=== PATIENT | female | born 1975 | race American Indian/Alaskan Native ===

== ENCOUNTER 2017-08-16 11:54 | Observation (INO) | payer MEDICARE ==
[2017-08-16 12:53] LABS: Basophils % (Auto) 0.9 % (0.0-1.8); Eosinophils # (Auto) 0.2 K/mm3 (0.0-0.4); Eosinophils % (Auto) 5.5 % (0.0-4.3); Hematocrit 33.1 % (30.3-42.9); Hemoglobin 10.7 gm/dl (10.1-14.3); Lymphocytes # (Auto) 1.2 K/mm3 (1.2-5.4); Lymphocytes % (Auto) 28.1 % (13.4-35.0); Mean Corpuscular HGB Conc 32 % (30-34); Mean Corpuscular Hemoglobin 28 pg (28-32); Mean Corpuscular Volume 87 fl (79-97); Monocytes # (Auto) 0.6 K/mm3 (0.0-0.8); Monocytes % (Auto) 13.8 % (0.0-7.3); Platelet Count 264 K/mm3 (140-440); Red Blood Count 3.83 M/mm3 (3.65-5.03); Red Cell Distribution Width 14.9 % (13.2-15.2)
[2017-08-16 12:55] LABS: INR 0.92 (0.87-1.13)
[2017-08-16 12:59] LABS: Alanine Aminotransferase 21 units/L (7-56); Albumin 3.7 g/dL (3.9-5); BUN/Creatinine Ratio 11; Blood Urea Nitrogen 8 mg/dL (7-17); Calcium 8.6 mg/dL (8.4-10.2); Hemolysis Index 2
[2017-08-16] MEDS ORDERED: SUBLIMAZE IV ONE (13:37)
--- NOTE | 2017-08-16 13:38 | Emergency Department Report ---
ED Chest Pain HPI - General Chief Complaint: Chest Pain Stated Complaint: CHEST PAIN Time Seen by Provider: 08/16/17 12:54 Source: patient, EMS (ems notes not available at time of chart dictation), RN notes reviewed Mode of arrival: Stretcher Limitations: No Limitations - History of Present Illness Initial Comments: This is a 42-year-old female. The patient is unknown to this provider previously. She has a history of seizures. She denies DVT, pulmonary embolus risk factors. She presents to the ER with complaint of central and left-sided chest pain. It started last night at 11:00. It is intermittent. There is no vomiting or diaphoresis. There is no leg pain, there is no leg swelling, no recent aspirin use or cocaine use. Patient further reports that both of her parents had cardiac disease in their 40s. No history of cardiac risk stratification the patient is aware of. Furthermore, the patient denies cocaine use. MD Complaint: chest pain -: Gradual Onset: during rest Pain Location: substernal, left chest Pain Radiation: RUE Severity: moderate Severity scale (0 -10): 10 Quality: aching, heaviness, sharp Consistency: intermittent Improves With: nothing Worsens With: nothing re: denies: nausea, vomting, diaphoresis, dyspnea, sense of impending doom Treatments Prior to Arrival: aspirin Aspirin use within the Past 7 Days: (0) No - Related Data Home Medications Medication Instructions Recorded Confirmed Last Taken Gabapentin [Neurontin] 300 mg PO TID 08/16/17 08/16/17 Unknown Loratadine [Claritin] 10 mg PO DAILY 08/16/17 08/16/17 Unknown Tizanidine HCl [tiZANidine] 4 mg PO TID PRN 08/16/17 08/16/17 Unknown levETIRAcetam [Keppra TAB] 750 mg PO BIDWM 08/16/17 08/16/17 Unknown Allergies Allergy/AdvReac Type Severity Reaction Status Date / Time No Known Allergies Allergy Unverified 01/06/16 03:35 Heart Score - HEART Score History: Moderately suspicious EKG: Non-specific Age: < 45 Risk factors: 1-2 risk factors Troponin: < normal limit HEART Score: 3 - Critical Actions Critical Actions: 0-3 pts:0.9-1.7%risk of adverse cardiac event.Candidate for discharge ED Review of Systems ROS: Stated complaint: CHEST PAIN Other details as noted in HPI Comment: All other systems reviewed and negative Constitutional: denies: fever Eyes: denies: eye discharge ENT: denies: epistaxis Respiratory: denies: cough Cardiovascular: chest pain Gastrointestinal: denies: abdominal pain Genitourinary: as per HPI Musculoskeletal: as per HPI ED Past Medical Hx - Past Medical History Hx Seizures: Yes Additional medical history: chronic back pain - Social History Smoking Status: Never Smoker Substance Use Type: Alcohol - Medications Home Medications: Home Medications Medication Instructions Recorded Confirmed Last Taken Type Gabapentin [Neurontin] 300 mg PO TID 08/16/17 08/16/17 Unknown History Loratadine [Claritin] 10 mg PO DAILY 08/16/17 08/16/17 Unknown History Tizanidine HCl [tiZANidine] 4 mg PO TID PRN 08/16/17 08/16/17 Unknown History levETIRAcetam [Keppra TAB] 750 mg PO BIDWM 08/16/17 08/16/17 Unknown History ED Physical Exam - General Limitations: No Limitations General appearance: alert, in no apparent distress - Head Head exam: Present: atraumatic, normocephalic - Eye Eye exam: Present: normal appearance, EOMI. Absent: nystagmus - ENT ENT exam: Present: normal exam, normal orophraynx, mucous membranes moist, normal external ear exam - Neck Neck exam: Present: normal inspection, full ROM - Respiratory Respiratory exam: Present: normal lung sounds bilaterally, chest wall tenderness. Absent: respiratory distress - Cardiovascular Cardiovascular Exam: Present: regular rate, normal rhythm, normal heart sounds. Absent: bradycardia, tachycardia, irregular rhythm, systolic murmur, diastolic murmur, rubs, gallop - GI/Abdominal GI/Abdominal exam: Present: soft, normal bowel sounds. Absent: distended, tenderness, guarding, rebound, rigid, pulsatile mass - Extremities Exam Extremities exam: Present: normal inspection, full ROM, normal capillary refill , other (there is no palpable cord. There is a negative Homans sign.). Absent : tenderness, pedal edema, joint swelling, calf tenderness - Back Exam Back exam: Present: normal inspection, full ROM. Absent: tenderness, CVA tenderness (R), paraspinal tenderness, vertebral tenderness - Neurological Exam Neurological exam: Present: alert, oriented X3, CN II-XII intact, normal gait, other (Extraocular movements intact. Tongue midline. No facial droop. Facial sensation intact to light touch in the V1, V2, V3 distribution bilaterally. 5 and 5 strength in 4 extremities.. Sensation is intact to light touch in 4 extremities.). Absent: motor sensory deficit - Psychiatric Psychiatric exam: Present: normal affect, normal mood - Skin Skin exam: Present: warm, dry, intact, normal color. Absent: rash ED Course Vital Signs 08/16/17 08/16/17 08/16/17 12:06 12:16 12:21 Temperature 98.4 F Pulse Rate 73 75 Respiratory 19 18 20 Rate Blood Pressure 104/63 140/63 Blood Pressure 104/63 [Left] O2 Sat by Pulse 98 99 Oximetry 08/16/17 08/16/17 08/16/17 12:30 12:46 13:00 Temperature Pulse Rate 60 71 63 Respiratory 13 12 13 Rate Blood Pressure 109/70 109/70 104/62 Blood Pressure [Left] O2 Sat by Pulse 98 99 Oximetry 08/16/17 08/16/17 08/16/17 13:16 13:30 13:46 Temperature Pulse Rate 72 68 60 Respiratory 16 18 15 Rate Blood Pressure 104/62 116/66 116/66 Blood Pressure [Left] O2 Sat by Pulse 98 98 98 Oximetry 08/16/17 08/16/17 08/16/17 14:00 14:10 14:42 Temperature Pulse Rate 65 58 L Respiratory 10 L 18 13 Rate Blood Pressure 102/69 113/68 Blood Pressure [Left] O2 Sat by Pulse 98 99 99 Oximetry 08/16/17 08/16/17 08/16/17 14:46 15:00 15:16 Temperature Pulse Rate 58 L 56 L 64 Respiratory 16 15 11 L Rate Blood Pressure 113/68 111/65 111/65 Blood Pressure [Left] O2 Sat by Pulse 99 99 100 Oximetry 08/16/17 08/16/17 15:30 15:38 Temperature Pulse Rate 62 58 L Respiratory 15 Rate Blood Pressure 113/67 Blood Pressure [Left] O2 Sat by Pulse 99 Oximetry - Reevaluation(s) Reevaluation #1: 08/16/17 16:04 CAT scan of the chest is negative for acute disease. Hospital physician is ronan. Reevaluation #2: 08/16/17 16:11 Dr Guallpa accepts patient MERA score - Mera Score Age > 65: (0) No Aspirin use within the Past 7 Days: (0) No 3 or more CAD Risk Factors: (0) No 2 or more Angina events in past 24 hrs: (1) Yes Known CAD with more than 50% Stenosis: (0) No Elevated Cardiac Markers: (0) No ST Deviation Greater than 0.5mm: (0) No MERA Score: 1 ED Medical Decision Making - Lab Data Result diagrams: 08/16/17 12:32 08/16/17 12:35 Vital Signs 08/16/17 08/16/17 08/16/17 12:06 12:16 12:21 Temperature 98.4 F Pulse Rate 73 75 Respiratory 19 18 20 Rate Blood Pressure 104/63 140/63 Blood Pressure 104/63 [Left] O2 Sat by Pulse 98 99 Oximetry 08/16/17 08/16/17 08/16/17 12:30 12:46 13:00 Temperature Pulse Rate 60 71 63 Respiratory 13 12 13 Rate Blood Pressure 109/70 109/70 104/62 Blood Pressure [Left] O2 Sat by Pulse 98 99 Oximetry 08/16/17 08/16/17 08/16/17 13:16 13:30 13:46 Temperature Pulse Rate 72 68 60 Respiratory 16 18 15 Rate Blood Pressure 104/62 116/66 116/66 Blood Pressure [Left] O2 Sat by Pulse 98 98 98 Oximetry 08/16/17 08/16/17 08/16/17 14:00 14:10 14:42 Temperature Pulse Rate 65 58 L Respiratory 10 L 18 13 Rate Blood Pressure 102/69 113/68 Blood Pressure [Left] O2 Sat by Pulse 98 99 99 Oximetry 08/16/17 08/16/17 08/16/17 14:46 15:00 15:16 Temperature Pulse Rate 58 L 56 L 64 Respiratory 16 15 11 L Rate Blood Pressure 113/68 111/65 111/65 Blood Pressure [Left] O2 Sat by Pulse 99 99 100 Oximetry 08/16/17 08/16/17 15:30 15:38 Temperature Pulse Rate 62 58 L Respiratory 15 Rate Blood Pressure 113/67 Blood Pressure [Left] O2 Sat by Pulse 99 Oximetry Lab Results 08/16/17 08/16/17 08/16/17 Range/Units 12:32 12:35 12:35 WBC 4.2 L (4.5-11.0) K/mm3 RBC 3.83 (3.65-5.03) M/mm3 Hgb 10.7 (10.1-14.3) gm/dl Hct 33.1 (30.3-42.9) % MCV 87 (79-97) fl MCH 28 (28-32) pg MCHC 32 (30-34) % RDW 14.9 (13.2-15.2) % Plt Count 264 (140-440) K/mm3 Lymph % (Auto) 28.1 (13.4-35.0) % [place] % (Auto) 13.8 H (0.0-7.3) % Eos % (Auto) 5.5 H (0.0-4.3) % Baso % (Auto) 0.9 (0.0-1.8) % Lymph # 1.2 (1.2-5.4) K/mm3 [place] # 0.6 (0.0-0.8) K/mm3 Eos # 0.2 (0.0-0.4) K/mm3 Baso # 0.0 (0.0-0.1) K/mm3 Seg Neutrophils % 51.7 (40.0-70.0) % Seg Neutrophils # 2.2 (1.8-7.7) K/mm3 PT 12.8 (12.2-14.9) Sec. INR 0.92 (0.87-1.13) D-Dimer (0-234) ng/mlDDU Sodium 145 (137-145) mmol/L Potassium 4.0 (3.6-5.0) mmol/L Chloride 113.4 H (98-107) mmol/L Carbon Dioxide 19 L (22-30) mmol/L Anion Gap 17 mmol/L BUN 8 (7-17) mg/dL Creatinine 0.7 (0.7-1.2) mg/dL Estimated GFR > 60 ml/min BUN/Creatinine Ratio 11 % Glucose 90 (65-100) mg/dL Calcium 8.6 (8.4-10.2) mg/dL Total Bilirubin 0.20 (0.1-1.2) mg/dL AST 26 (5-40) units/L ALT 21 (7-56) units/L Alkaline Phosphatase 96 (35-129) units/L Troponin T (0.00-0.029) ng/mL Total Protein 7.2 (6.3-8.2) g/dL Albumin 3.7 L (3.9-5) g/dL Albumin/Globulin Ratio 1.1 % Urine Color (Yellow) Urine Turbidity (Clear) Urine pH (5.0-7.0) Ur Specific [place] (1.003-1.030) Urine Protein (Negative) mg/dL Urine Glucose (UA) (Negative) mg/dL Urine Ketones (Negative) mg/dL Urine Blood (Negative) Urine Nitrite (Negative) Urine Bilirubin (Negative) Urine Urobilinogen (<2.0) mg/dL Ur Leukocyte Esterase (Negative) Urine WBC (Auto) (0.0-6.0) /HPF Urine RBC (Auto) (0.0-6.0) /HPF U Epithel Cells (Auto) (0-13.0) /HPF Urine Mucus /HPF Urine HCG, Qual (Negative) 08/16/17 08/16/17 08/16/17 Range/Units 12:35 12:35 14:16 WBC (4.5-11.0) K/mm3 RBC (3.65-5.03) M/mm3 Hgb (10.1-14.3) gm/dl Hct (30.3-42.9) % MCV (79-97) fl MCH (28-32) pg MCHC (30-34) % RDW (13.2-15.2) % Plt Count (140-440) K/mm3 Lymph % (Auto) (13.4-35.0) % [place] % (Auto) (0.0-7.3) % Eos % (Auto) (0.0-4.3) % Baso % (Auto) (0.0-1.8) % Lymph # (1.2-5.4) K/mm3 [place] # (0.0-0.8) K/mm3 Eos # (0.0-0.4) K/mm3 Baso # (0.0-0.1) K/mm3 Seg Neutrophils % (40.0-70.0) % Seg Neutrophils # (1.8-7.7) K/mm3 PT (12.2-14.9) Sec. INR (0.87-1.13) D-Dimer 335.11 H (0-234) ng/mlDDU Sodium (137-145) mmol/L Potassium (3.6-5.0) mmol/L Chloride (98-107) mmol/L Carbon Dioxide (22-30) mmol/L Anion Gap mmol/L BUN (7-17) mg/dL Creatinine (0.7-1.2) mg/dL Estimated GFR ml/min BUN/Creatinine Ratio % Glucose (65-100) mg/dL Calcium (8.4-10.2) mg/dL Total Bilirubin (0.1-1.2) mg/dL AST (5-40) units/L ALT (7-56) units/L Alkaline Phosphatase (35-129) units/L Troponin T < 0.010 < 0.010 (0.00-0.029) ng/mL Total Protein (6.3-8.2) g/dL Albumin (3.9-5) g/dL Albumin/Globulin Ratio % Urine Color (Yellow) Urine Turbidity (Clear) Urine pH (5.0-7.0) Ur Specific [place] (1.003-1.030) Urine Protein (Negative) mg/dL Urine Glucose (UA) (Negative) mg/dL Urine Ketones (Negative) mg/dL Urine Blood (Negative) Urine Nitrite (Negative) Urine Bilirubin (Negative) Urine Urobilinogen (<2.0) mg/dL Ur Leukocyte Esterase (Negative) Urine WBC (Auto) (0.0-6.0) /HPF Urine RBC (Auto) (0.0-6.0) /HPF U Epithel Cells (Auto) (0-13.0) /HPF Urine Mucus /HPF Urine HCG, Qual (Negative) 08/16/17 Range/Units 14:45 WBC (4.5-11.0) K/mm3 RBC (3.65-5.03) M/mm3 Hgb (10.1-14.3) gm/dl Hct (30.3-42.9) % MCV (79-97) fl MCH (28-32) pg MCHC (30-34) % RDW (13.2-15.2) % Plt Count (140-440) K/mm3 Lymph % (Auto) (13.4-35.0) % [place] % (Auto) (0.0-7.3) % Eos % (Auto) (0.0-4.3) % Baso % (Auto) (0.0-1.8) % Lymph # (1.2-5.4) K/mm3 [place] # (0.0-0.8) K/mm3 Eos # (0.0-0.4) K/mm3 Baso # (0.0-0.1) K/mm3 Seg Neutrophils % (40.0-70.0) % Seg Neutrophils # (1.8-7.7) K/mm3 PT (12.2-14.9) Sec. INR (0.87-1.13) D-Dimer (0-234) ng/mlDDU Sodium (137-145) mmol/L Potassium (3.6-5.0) mmol/L Chloride (98-107) mmol/L Carbon Dioxide (22-30) mmol/L Anion Gap mmol/L BUN (7-17) mg/dL Creatinine (0.7-1.2) mg/dL Estimated GFR ml/min BUN/Creatinine Ratio % Glucose (65-100) mg/dL Calcium (8.4-10.2) mg/dL Total Bilirubin (0.1-1.2) mg/dL AST (5-40) units/L ALT (7-56) units/L Alkaline Phosphatase (35-129) units/L Troponin T (0.00-0.029) ng/mL Total Protein (6.3-8.2) g/dL Albumin (3.9-5) g/dL Albumin/Globulin Ratio % Urine Color Yellow (Yellow) Urine Turbidity Clear (Clear) Urine pH 5.0 (5.0-7.0) Ur Specific [place] 1.024 (1.003-1.030) Urine Protein <15 mg/dl (Negative) mg/dL Urine Glucose (UA) Neg (Negative) mg/dL Urine Ketones Neg (Negative) mg/dL Urine Blood Neg (Negative) Urine Nitrite Neg (Negative) Urine Bilirubin Neg (Negative) Urine Urobilinogen < 2.0 (<2.0) mg/dL Ur Leukocyte Esterase Neg (Negative) Urine WBC (Auto) 1.0 (0.0-6.0) /HPF Urine RBC (Auto) 2.0 (0.0-6.0) /HPF U Epithel Cells (Auto) 3.0 (0-13.0) /HPF Urine Mucus Few /HPF Urine HCG, Qual Negative (Negative) - EKG Data -: EKG Interpreted by Me EKG shows normal: sinus rhythm Rate: normal - EKG Data 08/16/17 15:52 EKG #1 demonstrates sinus, 69 bpm, normal axis, T-wave inversion V2, low voltage in the inferior leads, abnormal EKG, not a STEMI, TX intervals prolonged. EKG #2 Show sinus, left axis deviation, resolution of T-wave inversion in V2, prolonged TX interval, abnormal EKG, nonspecific changes when compared to prior. - Radiology Data Radiology results: pending - Medical Decision Making Differential diagnosis, including but not limited to: Acute coronary syndrome, pulmonary embolus, aortic dissection, pneumonia, GERD, gastritis, hiatal hernia Assessment and plan: 42-year-old female with reproducible pleuritic pain, no pulmonary M blister DVT risk factors, with a positive d-dimer. EKG showing dynamic changes. Troponin negative 2. CT scan of the chest interpretation is pending. [place] improved after fentanyl and nitroglycerin. Given chest pain with dynamic EKG changes family history of heart disease in their 40s, patient to be admitted to the hospital for a cardiac resuscitation. The Hospital physician was paged to arrange admission. Patient was given aspirin in the ambulance. Critical care attestation.: If time is entered above; I have spent that time in minutes in the direct care of this critically ill patient, excluding procedure time. ED Disposition Clinical Impression: Chest pain, Acute electrocardiogram changes Disposition: OP ADMIT IP TO THIS HOSP Is pt being admited?: Yes Does the pt Need Aspirin: Yes Condition: Stable Instructions: Chest Pain (ED)
[2017-08-16] MEDS ORDERED: NACL 0.9% 500 ML 500 ML IV ONE (14:33)
[2017-08-16 15:35] LABS: Bilirubin,Urine NEG (Negative); Blood,Urine NEG (Negative); Color,Urine Yellow (Yellow); Mucus,Urine FEW /HPF; Protein,Urine <15 mg/dL mg/dL (Negative); Urobilinogen,Urine < 2.0 mg/dL (<2.0)
[2017-08-16 15:37] LABS: HCG Qualitative,Urine Negative (Negative)
[2017-08-16] MEDS ORDERED: BABY ASPIRIN PO ONE (15:55)
--- NOTE | 2017-08-16 16:03 | Cat Scan Report ---
CTA CHEST: HISTORY: Pleuritic chest pain. COMPARISON: none. TECHNIQUE: Helical CT in 1.25mm intervals following IV contrast. Pulmonary embolus protocol. Sagittal and coronal reformatted images. Rotational MIP images. FINDINGS: Contrast bolus is satisfactory. No pulmonary embolus is identified. Thyroid gland: Normal. Tracheobronchial tree: Normal. Esophagus: Normal. Heart: Normal. Pericardium: Normal. Mediastinum: Normal. Lung Leigh: normal. Pleural Spaces: Normal. Musculoskeletal: Normal. IMPRESSION: No evidence for pulmonary embolus. Unremarkable CT chest with contrast.
[2017-08-16] MEDS: NITROSTAT SL PRN ×2 (21:26→22:50)
[2017-08-16] MEDS ORDERED: SODIUM CHLORIDE FLUSH SYRINGE 10 ML IV PRN (22:54)
[2017-08-16] MEDS ORDERED: REGLAN IV PRN (22:54)
[2017-08-16] MEDS ORDERED: TYLENOL PO PRN (22:54)
[2017-08-16] MEDS ORDERED: MORPHINE IV PRN (22:54)
[2017-08-16] MEDS ORDERED: PERCOCET 5/325 PO PRN (22:54)
[2017-08-16] MEDS ORDERED: AMBIEN PO PRN (22:54)
[2017-08-16] MEDS ORDERED: ZOFRAN IV PRN (22:54)
--- NOTE | 2017-08-16 22:54 | History and Physical Report ---
History of Present Illness Date of examination: 08/16/17 Date of admission: 08/16/17 Chief complaint: Chief complaint: Left-sided chest pain for 1 day History of present illness: History of Present Illness: 42-year-old female with history of seizures presents to the ER with complaint of central and left-sided chest pain. It started last night at 11:00. It is intermittent. There is no vomiting or diaphoresis. There is no leg pain, there is no leg swelling, no recent aspirin use or cocaine use. Patient further reports that both of her parents had cardiac disease in their 40s. No history of cardiac risk stratification the patient is aware of. Furthermore, the patient denies cocaine use. MD Complaint: chest pain -: Gradual Onset: during rest Pain Location: substernal , left chest Pain Radiation: RUE Severity: moderate Severity scale (0 -10): 10 Quality: aching, heaviness, sharp Consistency: intermittent Improves With: nothing Worsens With: nothing denies: nausea, vomting, diaphoresis, dyspnea, Treatments Prior to Arrival: aspirin Aspirin use within the Past 7 Days: (0) No Past Medical History Hx Seizures: Yes Additional medical history: chronic back pain Social History Smoking Status: Never Smoker Substance Use Type: Alcohol Family history Htn Surgical History None Medications Home Medications: Home Medications Medication Instructions Recorded Confirmed Last Taken Type Gabapentin [Neurontin] 300 mg PO TID 08/16/17 08/16/17 Unknown History Loratadine [Claritin] 10 mg PO DAILY 08/16/17 08/16/17 Unknown History Tizanidine HCl [tiZANidine] 4 mg PO TID PRN 08/16/17 08/16/17 Unknown History levETIRAcetam [Keppra TAB] 750 mg PO BIDWM 08/16/17 08/16/17 Unknown History Review of Systems ROS: Stated complaint: CHEST PAIN Other details as noted in HPI Comment: All other systems reviewed and negative Constitutional: denies: fever Eyes: denies: eye discharge ENT: denies: epistaxis Respiratory: denies: cough Cardiovascular: chest pain Gastrointestinal: denies: abdominal pain Genitourinary: as per HPI Musculoskeletal: as per HPI Medications and Allergies Allergies Allergy/AdvReac Type Severity Reaction Status Date / Time No Known Allergies Allergy Unverified 01/06/16 03:35 Home Medications Medication Instructions Recorded Confirmed Last Taken Type Gabapentin [Neurontin] 300 mg PO TID 08/16/17 08/16/17 Unknown History Loratadine [Claritin] 10 mg PO DAILY 08/16/17 08/16/17 Unknown History Tizanidine HCl [tiZANidine] 4 mg PO TID PRN 08/16/17 08/16/17 Unknown History levETIRAcetam [Keppra TAB] 750 mg PO BIDWM 08/16/17 08/16/17 Unknown History Active Meds: Active Medications Nitroglycerin (Nitrostat) 0.4 mg SL .Q5MIN PRN PRN Reason: Chest Pain Last Admin: 08/16/17 22:50 Dose: 0.4 mg Exam - Constitutional Vitals: Temp Pulse Resp BP Pulse Ox 98.9 F 83 17 120/71 100 08/16/17 19:10 08/16/17 22:50 08/16/17 22:30 08/16/17 22:50 08/16/17 22:16 General appearance: Present: no acute distress, well-nourished - EENT Eyes: Present: PERRL ENT: hearing intact, clear oral mucosa - Neck Neck: Present: supple, normal ROM - Respiratory Respiratory effort: normal Respiratory: bilateral: CTA - Cardiovascular Heart rate: 76 Rhythm: regular Heart Sounds: Present: S1 & S2. Absent: rub, click - Extremities Extremities: no ischemia, pulses intact, pulses symmetrical, No edema Peripheral Pulses: within normal limits - Abdominal General gastrointestinal: Present: soft, non-tender, non-distended, normal bowel sounds Female genitourinary: Present: normal - Integumentary Integumentary: Present: clear, warm, dry - Musculoskeletal Musculoskeletal: gait normal, strength equal bilaterally - Psychiatric Psychiatric: appropriate mood/affect, intact judgment & insight - Neurologic Neurologic: CNII-XII intact, moves all extremities - Allied Health Allied health notes reviewed: nursing, case management Results - Labs CBC & Chem 7: 08/16/17 12:32 08/16/17 12:35 Labs: Laboratory Last Values WBC 4.2 K/mm3 (4.5-11.0) L 08/16/17 12:32 RBC 3.83 M/mm3 (3.65-5.03) 08/16/17 12:32 Hgb 10.7 gm/dl (10.1-14.3) 08/16/17 12:32 Hct 33.1 % (30.3-42.9) 08/16/17 12:32 MCV 87 fl (79-97) 08/16/17 12:32 MCH 28 pg (28-32) 08/16/17 12:32 MCHC 32 % (30-34) 08/16/17 12:32 RDW 14.9 % (13.2-15.2) 08/16/17 12:32 Plt Count 264 K/mm3 (140-440) 08/16/17 12:32 Lymph % (Auto) 28.1 % (13.4-35.0) 08/16/17 12:32 [place] % (Auto) 13.8 % (0.0-7.3) H 08/16/17 12:32 Eos % (Auto) 5.5 % (0.0-4.3) H 08/16/17 12:32 Baso % (Auto) 0.9 % (0.0-1.8) 08/16/17 12:32 Lymph # 1.2 K/mm3 (1.2-5.4) 08/16/17 12:32 [place] # 0.6 K/mm3 (0.0-0.8) 08/16/17 12:32 Eos # 0.2 K/mm3 (0.0-0.4) 08/16/17 12:32 Baso # 0.0 K/mm3 (0.0-0.1) 08/16/17 12:32 Seg Neutrophils % 51.7 % (40.0-70.0) 08/16/17 12:32 Seg Neutrophils # 2.2 K/mm3 (1.8-7.7) 08/16/17 12:32 PT 12.8 Sec. (12.2-14.9) 08/16/17 12:35 INR 0.92 (0.87-1.13) 08/16/17 12:35 D-Dimer 335.11 ng/mlDDU (0-234) H 08/16/17 12:35 Sodium 145 mmol/L (137-145) 08/16/17 12:35 Potassium 4.0 mmol/L (3.6-5.0) 08/16/17 12:35 Chloride 113.4 mmol/L (98-107) H 08/16/17 12:35 Carbon Dioxide 19 mmol/L (22-30) L 08/16/17 12:35 Anion Gap 17 mmol/L 08/16/17 12:35 BUN 8 mg/dL (7-17) 08/16/17 12:35 Creatinine 0.7 mg/dL (0.7-1.2) 08/16/17 12:35 Estimated GFR > 60 ml/min 08/16/17 12:35 BUN/Creatinine Ratio 11 % 08/16/17 12:35 Glucose 90 mg/dL (65-100) 08/16/17 12:35 Calcium 8.6 mg/dL (8.4-10.2) 08/16/17 12:35 Total Bilirubin 0.20 mg/dL (0.1-1.2) 08/16/17 12:35 AST 26 units/L (5-40) 08/16/17 12:35 ALT 21 units/L (7-56) 08/16/17 12:35 Alkaline Phosphatase 96 units/L (35-129) 08/16/17 12:35 Troponin T < 0.010 ng/mL (0.00-0.029) 08/16/17 14:16 Total Protein 7.2 g/dL (6.3-8.2) 08/16/17 12:35 Albumin 3.7 g/dL (3.9-5) L 08/16/17 12:35 Albumin/Globulin Ratio 1.1 % 08/16/17 12:35 Urine Color Yellow (Yellow) 08/16/17 14:45 Urine Turbidity Clear (Clear) 08/16/17 14:45 Urine pH 5.0 (5.0-7.0) 08/16/17 14:45 Ur Specific [place] 1.024 (1.003-1.030) 08/16/17 14:45 Urine Protein <15 mg/dl mg/dL (Negative) 08/16/17 14:45 Urine Glucose (UA) Neg mg/dL (Negative) 08/16/17 14:45 Urine Ketones Neg mg/dL (Negative) 08/16/17 14:45 Urine Blood Neg (Negative) 08/16/17 14:45 Urine Nitrite Neg (Negative) 08/16/17 14:45 Urine Bilirubin Neg (Negative) 08/16/17 14:45 Urine Urobilinogen < 2.0 mg/dL (<2.0) 08/16/17 14:45 Ur Leukocyte Esterase Neg (Negative) 08/16/17 14:45 Urine WBC (Auto) 1.0 /HPF (0.0-6.0) 08/16/17 14:45 Urine RBC (Auto) 2.0 /HPF (0.0-6.0) 08/16/17 14:45 U Epithel Cells (Auto) 3.0 /HPF (0-13.0) 08/16/17 14:45 Urine Mucus Few /HPF 08/16/17 14:45 Urine HCG, Qual Negative (Negative) 08/16/17 14:45 - Imaging and Cardiology EKG: report reviewed Assessment and Plan Advance Directives: Yes (full code) VTE prophylaxis?: Chemical Plan of care discussed with patient/family: Yes - Patient Problems (1) Chest pain Current Visit: Yes Status: Acute Qualifiers: Chest pain type: unspecified Qualified Code(s): R07.9 - Chest pain, unspecified Plan to address problem: Chest pain workup Serial cardiac enzymes and Lexiscan the morning Costochondritis ruled out no chest wall tenderness GERD is a possibility (2) Seizure disorder Current Visit: Yes Status: Chronic Plan to address problem: Continue Keppra and gabapentin (3) Muscle spasm Current Visit: Yes Status: Chronic Plan to address problem: Continue Zanaflex (4) DVT prophylaxis Current Visit: Yes Status: Acute Plan to address problem: Heparin initiated and GI prophylaxis initiated
[2017-08-16] MEDS ORDERED: TIZANIDINE HCL 4 MG PO PRN (22:57)
[2017-08-16] MEDS ORDERED: NON-FORMULARY (Levetiracetam [Keppra Tab] 750 MG) PO SCH (23:00)
[2017-08-16] MEDS ORDERED: NACL 0.9% 1000 ML 1,000 ML IV SCH (23:00)
[2017-08-16] MEDS ORDERED: ZANAFLEX PO PRN (23:11)
[2017-08-16] MEDS ORDERED: KEPPRA PO ONE (23:14)
[2017-08-16] MEDS: KEPPRA PO SCH (23:18)
[2017-08-17] MEDS ORDERED: CLARITIN PO SCH (10:00)
[2017-08-17] MEDS ORDERED: PEPCID PO SCH (10:00)
[2017-08-17] MEDS ORDERED: LOVENOX SUB-Q SCH (10:00)
[2017-08-17] MEDS ORDERED: SODIUM CHLORIDE FLUSH SYRINGE 10 ML IV SCH (10:00)
[2017-08-17] MEDS ORDERED: LEXISCAN IV ONE ×2 (10:01→10:16)
[2017-08-17] MEDS: NEURONTIN PO SCH ×2 (11:36→14:15)
[2017-08-17] MEDS: KEPPRA PO SCH (11:36)
--- NOTE | 2017-08-17 12:32 | Treadmill Report ---
NUCLEAR PERFUSION STUDY REASON FOR STUDY: Chest pain. IMAGING PROTOCOL: Single isotope used documented as single isotope protocol. IMAGING RESULTS: Normal cavity size from stress to rest. Normal distribution of radionuclide in the anterior, inferior, septal, lateral, and apical regions, but there is a small mild defect in the inferior apical region seen on stress compared to rest with gated SPECT, EF 53%. The patient infused Lexiscan with no EKG changes. SUMMARY: 1. Negative Lexiscan EKG. 2. The patient has a small mild inferior apical defect suggestive of ischemia, but otherwise normal perfusion in the anterior, inferior, septal, lateral, and apical regions. Gated SPECT, EF 53%. JOB# [id number] CHRISTY/JOANNE SKY
[2017-08-17 12:35] VITALS: BP 122/75
--- NOTE | 2017-08-17 14:35 | Discharge Summary ---
Providers - Providers Date of Admission: 08/16/17 22:54 Date of discharge: 08/17/17 Attending physician: SARI EDMONDS Primary care physician: [employer] Hospitalization Condition: Stable Pertinent studies: Lexiscan ---normal Hospital course: - Patient Problems (1) Chest pain Current Visit: Yes Status: Acute Qualifiers: Chest pain type: unspecified Qualified Code(s): R07.9 - Chest pain, unspecified Plan to address problem: Chest pain workup Serial cardiac enzymes and Lexiscan ---Normal Costochondritis ---has tenderness over costochondral L 3rd and 4 th costochondral junction GERD is a possibility (2) Seizure disorder Current Visit: Yes Status: Chronic Plan to address problem: Continue Keppra and gabapentin (3) Muscle spasm Current Visit: Yes Status: Chronic Plan to address problem: Continue Zanaflex 4) Gerd D/c on ppi's Disposition: DC-01 TO HOME OR SELFCARE - Discharge Diagnoses (1) Chest pain Status: Acute Qualifiers: Chest pain type: unspecified Qualified Code(s): R07.9 - Chest pain, unspecified (2) Seizure disorder Status: Chronic (3) Muscle spasm Status: Chronic (4) DVT prophylaxis Status: Acute Core Measure Documentation - Palliative Care Palliative Care/ Comfort Measures: Not Applicable - Core Measures Any of the following diagnoses?: none Exam - Constitutional Vitals: Temp Pulse Resp BP Pulse Ox 98.0 F 54 L 18 122/75 100 08/17/17 07:44 08/17/17 12:28 08/17/17 10:00 08/17/17 12:28 08/17/17 07:44 General appearance: Present: no acute distress, well-nourished - EENT Eyes: Present: PERRL ENT: hearing intact, clear oral mucosa - Neck Neck: Present: supple, normal ROM - Respiratory Respiratory effort: normal Respiratory: bilateral: CTA - Cardiovascular Heart rate: 78 Rhythm: regular Heart Sounds: Present: S1 & S2. Absent: rub, click - Extremities Extremities: no ischemia, pulses intact, pulses symmetrical, No edema Peripheral Pulses: within normal limits - Abdominal General gastrointestinal: Present: soft, non-tender, non-distended, normal bowel sounds Female genitourinary: Present: normal - Integumentary Integumentary: Present: clear, warm, dry - Musculoskeletal Musculoskeletal: gait normal, strength equal bilaterally - Psychiatric Psychiatric: appropriate mood/affect, intact judgment & insight - Neurologic Neurologic: CNII-XII intact, moves all extremities - Allied Health Allied health notes reviewed: nursing, case management Plan Activity: no restrictions Diet: low cholesterol Follow up with: PRIMARY CARE, [Primary Care Provider] - 7 Days
[2017-08-17 14:48] LABS: Basophils % (Auto) 0.8 % (0.0-1.8); Eosinophils # (Auto) 0.2 K/mm3 (0.0-0.4); Eosinophils % (Auto) 4.2 % (0.0-4.3); Hematocrit 32.3 % (30.3-42.9); Hemoglobin 10.5 gm/dl (10.1-14.3); Lymphocytes # (Auto) 1.2 K/mm3 (1.2-5.4); Lymphocytes % (Auto) 26.3 % (13.4-35.0); Mean Corpuscular HGB Conc 33 % (30-34); Mean Corpuscular Hemoglobin 28 pg (28-32); Mean Corpuscular Volume 87 fl (79-97); Monocytes # (Auto) 0.5 K/mm3 (0.0-0.8); Monocytes % (Auto) 10.9 % (0.0-7.3); Platelet Count 262 K/mm3 (140-440); Red Blood Count 3.73 M/mm3 (3.65-5.03); Red Cell Distribution Width 15.1 % (13.2-15.2)
[2017-08-17 15:13] LABS: Alanine Aminotransferase 20 units/L (7-56); Albumin 3.7 g/dL (3.9-5); BUN/Creatinine Ratio 10; Blood Urea Nitrogen 7 mg/dL (7-17); Calcium 8.5 mg/dL (8.4-10.2); Hemolysis Index 1
== END 2017-08-17 17:05 | disposition home or self-care (01) ==
LOC: ED 11:54 → 4A 22:54 → INTOOBSV 22:54
PROVIDERS: ADMIT Internal Medicine; ATTEND Internal Medicine
DX: R07.89 Other chest pain (principal); G40.909 Epilepsy, unspecified, not intractable, without status epilepticus; M62.838 Other muscle spasm; G89.29 Other chronic pain; M54.9 Dorsalgia, unspecified; Z79.899 Other long term (current) drug therapy
CPT/HCPCS: 36415; 71275; 78452; 80053; 81001; 81025; 83036; 84484; 85025; 85379; 85610; 93005; 93010; 93017; 96372; 96374; 99285; A9502; G0378; J1650; J2270; J2785; J3010; J7040; Q9967

== ENCOUNTER 2020-03-06 16:48 | Emergency (ER) | payer MEDICARE | END 2020-03-06 18:53 | disposition left against medical advice (07) | LOC: ED 16:48 | DX: G40.909 Epilepsy, unspecified, not intractable, without status epilepticus (principal); Z53.21 Procedure and treatment not carried out due to patient leaving prior to being seen by health care provider ==

== ENCOUNTER 2020-12-20 08:39 | Emergency (ER) | payer MEDICARE ==
[2020-12-20 09:04] VITALS: BP 116/55
--- NOTE | 2020-12-20 10:52 | Emergency Department Report ---
ED General Adult HPI - General Chief complaint: Animal Bite Stated complaint: CHEST HURT/ POSS SPIDER BITE Time Seen by Provider: 12/20/20 10:25 Source: patient Mode of arrival: Ambulatory Limitations: No Limitations - History of Present Illness Initial comments: 45-year-old -[place] female patient presents with complaints of sudden onset of left nipple pain and swelling starting last night. Patient states she believes she was bitten by an insect. She denies any fever/chills/sweats, or changes in her skin color. Patient rates her pain as 8/10 in severity. She has not tried any OTC medication for symptoms. She states the nipple drain a small amount of clear liquid. -: Sudden - Related Data Home Medications Medication Instructions Recorded Confirmed Last Taken Loratadine (Nf) [Claritin] 10 mg PO DAILY 08/16/17 08/16/17 Unknown Previous Rx's Medication Instructions Recorded Last Taken Type Famotidine [Pepcid] 20 mg PO BID #60 tablet 08/17/17 Unknown Rx Gabapentin 300 mg PO TID capsule 08/17/17 Unknown Rx Meloxicam 7.5 mg PO BID #20 tablet 08/17/17 Unknown Rx Zolpidem [Ambien] 5 mg PO QHS PRN tablet 08/17/17 Unknown Rx levETIRAcetam [Keppra TAB] 750 mg PO BID tablet 08/17/17 Unknown Rx tiZANidine [Zanaflex 4mg TAB] 4 mg PO TID PRN tablet 08/17/17 Unknown Rx Acetaminophen/Codeine [Tylenol 1 tab PO Q8H PRN #5 tab 12/20/20 Unknown Rx /Codeine # 3 tab] Clindamycin [Clindamycin CAP] 300 mg PO Q6H 10 Days #40 capsule 12/20/20 Unknown Rx Ibuprofen [Motrin 800 MG tab] 800 mg PO Q8HR PRN #20 tablet 12/20/20 Unknown Rx Mupirocin [Bactroban 2% OINT] 1 applic TP TID 10 Days #1 tube 12/20/20 Unknown Rx Allergies Allergy/AdvReac Type Severity Reaction Status Date / Time No Known Allergies Allergy Unverified 01/06/16 03:35 ED Review of Systems ROS: Stated complaint: CHEST HURT/ POSS SPIDER BITE Other details as noted in HPI Constitutional: denies: chills, fever, malaise Cardiovascular: denies: chest pain Skin: denies: rash, lesions, change in color Neurological: denies: numbness, paresthesias ED Past Medical Hx - Past Medical History Previous Medical History?: Yes Hx Congestive Heart Failure: No Hx Diabetes: No Hx Seizures: Yes Hx Asthma: Yes Hx COPD: No Additional medical history: chronic back pain - Surgical History Past Surgical History?: Yes - Social History Smoking Status: Never Smoker - Medications Home Medications: Home Medications Medication Instructions Recorded Confirmed Last Taken Type Loratadine (Nf) [Claritin] 10 mg PO DAILY 08/16/17 08/16/17 Unknown History Famotidine [Pepcid] 20 mg PO BID #60 tablet 08/17/17 Unknown Rx Gabapentin 300 mg PO TID capsule 08/17/17 Unknown Rx Meloxicam 7.5 mg PO BID #20 tablet 08/17/17 Unknown Rx Zolpidem [Ambien] 5 mg PO QHS PRN tablet 08/17/17 Unknown Rx levETIRAcetam [Keppra TAB] 750 mg PO BID tablet 08/17/17 Unknown Rx tiZANidine [Zanaflex 4mg TAB] 4 mg PO TID PRN tablet 08/17/17 Unknown Rx Acetaminophen/Codeine [Tylenol 1 tab PO Q8H PRN #5 tab 12/20/20 Unknown Rx /Codeine # 3 tab] Clindamycin [Clindamycin CAP] 300 mg PO Q6H 10 Days #40 capsule 12/20/20 Unknown Rx Ibuprofen [Motrin 800 MG tab] 800 mg PO Q8HR PRN #20 tablet 12/20/20 Unknown Rx Mupirocin [Bactroban 2% OINT] 1 applic TP TID 10 Days #1 tube 12/20/20 Unknown Rx ED Physical Exam - General Limitations: No Limitations General appearance: alert, in no apparent distress - Head Head exam: Present: atraumatic, normocephalic - Eye Eye exam: Present: normal appearance - Neck Neck exam: Present: normal inspection - Respiratory Respiratory exam: Absent: respiratory distress - Cardiovascular Cardiovascular Exam: Present: regular rate - External exam: Present: other (Left nipple is mildly indurated without overlying erythema or fluctuance noted; significant tenderness to palpation is noted; no active drainage noted from the nipple) ED Course Vital Signs 12/20/20 09:03 Temperature 98.3 F Pulse Rate 58 L Respiratory 16 Rate Blood Pressure 116/55 O2 Sat by Pulse 100 Oximetry ED Medical Decision Making - Medical Decision Making 45-year-old -[place] female patient presents with complaints of sudden onset of left nipple pain and swelling starting last night. Patient states she believes she was bitten by an insect. She denies any fever/chills/sweats, or changes in her skin color. Patient rates her pain as 8/10 in severity. She has not tried any OTC medication for symptoms. She states the nipple drain a small amount of clear liquid. She did not breast-feeding We'll treat for developing mastitis with clindamycin. Recommend follow-up with PCP in 2 to 3 days. Patient is well-appearing her vitals are normal. She is stable for discharge home. Discussed presumptive diagnosis, care plan, and signs and symptoms that should prompt immediate return to the ED with patient who verbalizes understanding. Critical care attestation.: If time is entered above; I have spent that time in minutes in the direct care of this critically ill patient, excluding procedure time. ED Disposition Clinical Impression: Nipple pain Disposition: 01 HOME / SELF CARE / HOMELESS Is pt being admited?: No Condition: Stable Instructions: Mastitis Prescriptions: Mupirocin [Bactroban 2% OINT] 1 applic TP TID 10 Days #1 tube Clindamycin [Clindamycin CAP] 300 mg PO Q6H 10 Days #40 capsule Ibuprofen [Motrin 800 MG tab] 800 mg PO Q8HR PRN #20 tablet PRN Reason: pain Acetaminophen/Codeine [Tylenol /Codeine # 3 tab] 1 tab PO Q8H PRN #5 tab PRN Reason: Pain , Severe (7-10) Referrals: [facility] [Provider Group] - 3-5 Days Forms: Work/School Release Form(ED)
[2020-12-20] MEDS ORDERED: IBUPROFEN 800 MG TAB PO STA (10:57)
[2020-12-20] MEDS ORDERED: ACETAMINOPHEN 500 MG TAB PO STA (10:57)
== END 2020-12-20 11:20 | disposition home or self-care (01) ==
LOC: ED 08:39
DX: N64.4 Mastodynia (principal); W57.XXXA Bitten or stung by nonvenomous insect and other nonvenomous arthropods, initial encounter; Y93.9 Activity, unspecified; Y92.89 Other specified places as the place of occurrence of the external cause; Y99.8 Other external cause status
CPT/HCPCS: 99281